=== PATIENT | male | born 1980 | race Caucasian/White ===

== ENCOUNTER 2023-01-13 05:06 | Emergency (ER) | payer MEDICAID ==
[~2023-01-13] VITALS: Ht 165.1 cm; Wt 78.0 kg
[2023-01-13 05:24] VITALS: BP 157/92
[2023-01-13] MEDS ORDERED: OFLO5DRO3 RIGHTEYE (07:31)
== END 2023-01-13 07:58 | disposition home or self-care (01) ==
LOC: ER 05:06
DX: H10.9 Unspecified conjunctivitis (principal); Z90.49 Acquired absence of other specified parts of digestive tract
CPT/HCPCS: 99283